=== PATIENT | male | born 1950 | race Caucasian/White ===

== ENCOUNTER 2022-07-27 15:06 | Outpatient (CLI) | payer MEDICARE, OTHER, SELFPAY ==
--- NOTE | ~2022-07-27 | MR_ITS ---
EXAMINATION: MR knee RT wo con DATE: 07/27/2022 16:15 INDICATION: Chronic right knee pain TECHNIQUE: Magnetic resonance imaging (MRI) of the right knee was performed without intravenous contr ast. Sequences included coronal PD-weighted FSE, coronal PD-weighted FS FSE, sagittal T2-weighted FS E, sagittal PD-weighted FS FSE and axial PD weighted fat saturated FSE. COMPARISON: None. FINDINGS: Medial compartment: Medial meniscus is normal. Small region of deep chondral ulceration with subtle cortical irregularity including tiny central subchondral osteophytes at the medial side of the posterior weightbearing med ial femoral condyle. Remaining cartilage in the medial compartment is normal. Lateral compartment: Lateral meniscus is normal. Articular cartilage is normal. Patellofemoral compartment: Small region of partial-thickness chondral ulceration with minimal underlying cortical irregularity a nd subarticular edema-like signal change along the lateral aspect of the lateral trochlea. Additional small region of deep chondral fissuring with underlying cortical irregularity at the junction of the caudal aspect of the medial trochlea and the anteriormost weightbearing medial femoral condyle. Ligaments and tendons: Anterior and posterior cruciate ligaments are normal. The medial collateral ligament and fibular marifer ateral ligament complex are normal. Mild distal quadriceps tendinopathy without tear. Additional tend inopathy at the proximal patellar tendon. The visualized medial and lateral hamstring tendons as well as the iliotibial band are normal. Fluid: Physiologic amount of fluid in the joint space. No loose osteochondral bodies identified. Osseous/other: Bone alignment is normal. No fracture or pathologic marrow replacing process. Mild edema at the super ficial suprapatellar fat pad which can be seen with fat pad impingement syndrome. IMPRESSION: 1. 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 2. Edema at the superficial suprapatellar fat pad consistent with fat pad impingement syndrome. Mild distal quadriceps and minimal proximal patellar tendinopathy. Reviewed, dictated and finalized at location A. IMPRESSION: 1. Mild osteoarthritis with small regions of moderate and high-grade chondromal acia at the medial and patellofemoral compartments. 2. Edema at the superficial suprapatellar fat pad consistent with fat pad impin gement syndrome. Mild distal quadriceps and minimal proximal patellar tendinopa thy.
== END 2022-07-27 15:07 | disposition home or self-care (01) ==
LOC: ANHIMG 15:17
PROVIDERS: PCP Family Medicine; Visit Provider Orthopaedic Surgery
DX: M17.11 Unilateral primary osteoarthritis, right knee (principal)
CPT/HCPCS: 73721